=== PATIENT | male | born 1965 | race Caucasian/White ===

== ENCOUNTER 2024-01-09 07:06 | Day surgery (SDC) | payer OTHER ==
[~2024-01-09] VITALS: Ht 137.2 cm; Wt 72.6 kg
[2024-01-09] MEDS ORDERED: fentaNYL citrate 0.05 MG/ML VIAL ONE (08:10)
[2024-01-09] MEDS: fentaNYL citrate 0.05 MG/ML VIAL IVP ONE (08:56)
== END 2024-01-09 09:45 | disposition home or self-care (01) ==
LOC: MDS 07:06 → MMU 07:07 → MDS 09:45
PROVIDERS: ATTEND Internal Medicine Gastroenterology
DX: K62.5 Hemorrhage of anus and rectum (principal); K64.8 Other hemorrhoids; E78.5 Hyperlipidemia, unspecified; Z79.899 Other long term (current) drug therapy; Z98.890 Other specified postprocedural states
CPT/HCPCS: 45378; J3010

== ENCOUNTER 2024-03-03 16:29 | Emergency (ER) | payer OTHER ==
[~2024-03-03] VITALS: Ht 162.6 cm; Wt 72.6 kg
[2024-03-03 16:33] VITALS: BP 110/74; PULSE 99; RESP 16; TEMP 98.6; O2SAT 96
[2024-03-03 17:36] VITALS: BP 111/73; PULSE 99; RESP 17; TEMP 98.2; O2SAT 96
[2024-03-03] MEDS: LIDOCAINE MPF 1% 10 MG/ML VIAL INJ ONE (17:44)
[2024-03-03] MEDS ORDERED: SULF-59 PO (18:03)
[2024-03-03] MEDS ORDERED: IBUP-1842 PO (18:03)
== END 2024-03-03 18:18 | disposition home or self-care (01) ==
LOC: MED 16:29
DX: L02.214 Cutaneous abscess of groin (principal); Z79.1 Long term (current) use of non-steroidal anti-inflammatories (NSAID); Z79.899 Other long term (current) drug therapy
CPT/HCPCS: 10060; 71048; 99283; J2001